=== PATIENT | male | born 1985 | race Caucasian/White ===

== ENCOUNTER 2017-06-16 20:55 | Emergency (ER) | payer MEDICAID ==
[~2017-06-16] VITALS: Ht 182.9 cm; Wt 68.0 kg
--- NOTE | 2017-06-16 21:11 | NUR ---
PT BIB RESCUE FOLLOWING HEROIN OVERDOSE. PT REPORTS DAILY USE, BUT TRIED A NEW KIND OF HEROIN TODAY. PT GIVEN 2 OF NARCAN IN FIELD. PT PRESENTS A&O. BREATHING EVEN AND NONLABORED. PT PLACED ON MONITOR AND PULSE OX.
--- NOTE | 2017-06-16 23:16 | NUR ---
Patient discharged to home in stable conditon. Written and verbal after care instructions given. Patient verbalizes understanding of instructions. Pt ambulated from ER w/ steady gait. VSS. No distress noted. Pt provided w/ bus token.
[2017-06-16 23:19] VITALS: BP 119/90
== END 2017-06-16 23:20 | disposition home or self-care (01) ==
LOC: ER 20:56
DX: T40.1X2A Poisoning by heroin, intentional self-harm, initial encounter (principal); Y92.89 Other specified places as the place of occurrence of the external cause
CPT/HCPCS: A4663